=== PATIENT | female | born 1990 | race Caucasian/White ===

== ENCOUNTER 2018-05-15 09:11 | Emergency (ER) | payer MEDICAID ==
[~2018-05-15] VITALS: Ht 152.4 cm; Wt 101.6 kg
--- NOTE | 2018-05-15 09:19 | NUR ---
PT AMBULATES TO BED 4
[2018-05-15 09:25] VITALS: BP 132/90
--- NOTE | 2018-05-15 09:25 | NUR ---
Patient being evaluated by physician at bedside.
[2018-05-15] MEDS ORDERED: traMADol 50 MG TAB PO ONE (09:30)
[2018-05-15] MEDS ORDERED: KETOROLAC 60 MG/2 ML VIAL IM ONE (09:30)
--- NOTE | 2018-05-15 09:30 | NUR ---
PT. bib friend with c/o abnormal vaginal bleeding since 629 today. Patient denies any sob or dizziness. Patient reports of 6/10 bl lower abd Cramping pain. Pt. denies any n/v/d. Pt states " i have been getting a lot of clots and i am regular on my period". ER md made aware. Will continue to monitor. safety precautions implemented. friend at bedside.
--- NOTE | 2018-05-15 10:28 | NUR ---
PT. RESTING COMFORTABLY IN BED, HOB ELEVATED. NO FURTHER CONCERNS AT THIS TIME. LAB AT BEDSIDE.
--- NOTE | 2018-05-15 10:37 | NUR ---
US AT BEDSIDE
[2018-05-15 10:47] LABS: BASOPHILS # (AUTO) 0.1 K/uL (0.00-0.22); BASOPHILS % (AUTO) 0.5 % (0.0-2.0); EOSINOPHILS % (AUTO) 0.4 % (0.0-4.0); HEMATOCRIT 37.8 % (36-48); HEMOGLOBIN 12.3 g/dL (12.0-16.0); LYMPHOCYTES # (AUTO) 1.4 K/uL (2.5-16.5); LYMPHOCYTES % (AUTO) 12.1 % (20.5-51.1); MEAN CORPUSCULAR HEMOGLOBIN 27 pg (27-31); MEAN CORPUSCULAR HGB CONC 33 g/dL (33-37); MEAN CORPUSCULAR VOLUME 83.8 fL (80-94); MONOCYTES # (AUTO) 0.5 K/uL (0.8-1.0); MONOCYTES % (AUTO) 3.9 % (1.7-9.3); NEUTROPHILS # (AUTO) 9.9 K/uL (1.8-7.7); NEUTROPHILS % (AUTO) 83.1 % (42.2-75.2); PLATELET COUNT (AUTO) 325 K/uL (140-450); RED BLOOD CELL COUNT(AUTO) 4.51 MIL/uL (4.20-5.40); RED CELL DISTRIBUTION WIDTH 13.5 % (11.6-13.7)
[2018-05-15 11:17] LABS: APPEARANCE,URINE SL CLOUDY (CLEAR); BILIRUBIN,URINE NEGATIVE (NEGATIVE); BLOOD, URINE 3+ (NEGATIVE); COLOR,URINE RED (YELLOW); LEUKOCYTE ESTERASE ,URINE TRACE (NEGATIVE); NITRITE, URINE NEGATIVE (NEGATIVE); UGLUCOSE NEGATIVE (NEGATIVE)
[2018-05-15 11:23] LABS: RBC,URINE 11-20 (MOD) /HPF (0-5); WBC,URINE 0-5 (RARE) /HPF (0-5)
[2018-05-15 11:52] VITALS: BP 130/86
--- NOTE | 2018-05-15 11:52 | NUR ---
Patient discharged with v/s stable. Written and verbal after care instructions given and explained. Patient alert, oriented and verbalized understanding of instructions. Ambulatory with steady gait. All questions addressed prior to discharge. ID band removed. Patient advised to follow up with PMD. Rx of Motrin 800mg, and Tramadol 50mg given. Patient educated on indication of medication including possible reaction and side effects. Opportunity to ask questions provided and answered.
== END 2018-05-15 11:52 | disposition home or self-care (01) ==
LOC: MED 09:11
DX: O46.91 Antepartum hemorrhage, unspecified, first trimester (principal); M54.9 Dorsalgia, unspecified; R42 Dizziness and giddiness; Z90.49 Acquired absence of other specified parts of digestive tract
CPT/HCPCS: 36415; 76817; 81001; 81025; 84702; 85025; 86900; 86901; 96372; 99284; J1885; Q0092

== ENCOUNTER 2019-10-22 12:15 | Inpatient (IN) | payer MEDICAID, SELFPAY ==
[~2019-10-22] VITALS: Ht 152.4 cm; Wt 113.9 kg
[2019-10-22] MEDS ORDERED: LACTATED RINGERS 1,000 ML IV SCH (12:46)
[2019-10-22] MEDS ORDERED: TRA200 PO (12:53)
[2019-10-22] MEDS ORDERED: PREN-380 PO (12:53)
[2019-10-22 13:30] LABS: APPEARANCE,URINE CLEAR (CLEAR); BILIRUBIN,URINE NEGATIVE (NEGATIVE); BLOOD, URINE 1+ (NEGATIVE); COLOR,URINE YELLOW (YELLOW); LEUKOCYTE ESTERASE ,URINE NEGATIVE (NEGATIVE); NITRITE, URINE NEGATIVE (NEGATIVE); PH,URINE 5.5 (5.0-9.0); UGLUCOSE NEGATIVE (NEGATIVE)
[2019-10-22 13:40] LABS: BASOPHILS % (AUTO) 0.2 % (0.0-2.0); EOSINOPHILS # (AUTO) 0.1 K/uL (0-0.4); EOSINOPHILS % (AUTO) 0.6 % (0.0-4.0); HEMATOCRIT 37.7 % (36-48); HEMOGLOBIN 12.1 g/dL (12.0-16.0); LYMPHOCYTES # (AUTO) 1.4 K/uL (2.5-16.5); MEAN CORPUSCULAR HEMOGLOBIN 26 pg (27-31); MEAN CORPUSCULAR HGB CONC 32 g/dL (33-37); MEAN CORPUSCULAR VOLUME 80.9 fL (80-94); MONOCYTES # (AUTO) 0.6 K/uL (0.8-1.0); MONOCYTES % (AUTO) 4.9 % (1.7-9.3); NEUTROPHILS # (AUTO) 9.4 K/uL (1.8-7.7); NEUTROPHILS % (AUTO) 82.3 % (42.2-75.2); PLATELET COUNT (AUTO) 88 K/uL (140-450); RED BLOOD CELL COUNT(AUTO) 4.65 MIL/uL (4.20-5.40); WHITE BLOOD COUNT (AUTO) 11.4 K/uL (4.8-10.8)
[2019-10-22 13:50] LABS: ALBUMIN 2.7 g/dL (3.4-5.0); ANION GAP 13.4 (8-16); CARBON DIOXIDE 26.8 mmol/L (21-32); CREATININE 0.5 mg/dL (0.6-1.3); POTASSIUM 4.2 mmol/L (3.5-5.1); TOTAL BILIRUBIN 0.4 mg/dL (0.0-1.0)
[2019-10-22] MEDS ORDERED: AMPICILLIN 2,000 MG VIAL ONE (13:59)
[2019-10-22 14:03] LABS: WBC,URINE 0-5 /HPF (0-5)
[2019-10-22 14:33] VITALS: BP 132/87
[2019-10-22] MEDS ORDERED: AMPICILLIN 2,000 MG in NACL 0.9% 100 ML IV SCH (16:00)
[2019-10-22] MEDS ORDERED: OXYTOCIN 20 UNITS in LACTATED RINGERS 1,000 ML IV SCH (17:06)
[2019-10-22] MEDS ORDERED: IBUPROFEN 800 MG TAB PO PRN (17:10)
[2019-10-22] MEDS ORDERED: TEMAZEPAM 15 MG CAP PO PRN (17:10)
[2019-10-22] MEDS ORDERED: KETOROLAC 30 MG/ML VIAL IVP PRN (17:10)
[2019-10-22] MEDS ORDERED: oxyCODONE/APAP 5/325 MG 1 TAB TAB PO PRN ×2 (17:10)
[2019-10-22] MEDS ORDERED: MORPHINE PRES FREE 10 MG/10 ML AMP IV ONE (17:19)
[2019-10-22] MEDS ORDERED: DEXAMETHASONE 4 MG/ML VIAL ONE (17:24)
[2019-10-22] MEDS ORDERED: ONDANSETRON 4 MG/2 ML VIAL ONE (18:01)
[2019-10-22] MEDS ORDERED: OXYTOCIN 20 UNITS/LR PREMIX 1,000 ML IV ONE (18:02)
[2019-10-22] MEDS ORDERED: ONDANSETRON 4 MG/2 ML VIAL IVP PRN (18:50)
[2019-10-22] MEDS ORDERED: MEPERIDINE 25 MG/ML SYR IVP PRN (18:50)
[2019-10-22] MEDS ORDERED: diphenhydrAMINE 50 MG/ML VIAL IVP PRN (18:50)
[2019-10-22] MEDS ORDERED: HYDROmorphone 1 MG/ML AMP IVP PRN (18:50)
[2019-10-23] MEDS ORDERED: OXYTOCIN 20 UNITS/LR PREMIX 1,000 ML IV ONE (02:32)
[2019-10-23] MEDS: OXYTOCIN 20 UNITS in LACTATED RINGERS 1,000 ML IV SCH ×2 (02:50→11:40)
[2019-10-23 06:30] LABS: BASOPHILS % (AUTO) 0.1 % (0.0-2.0); HEMATOCRIT 36.8 % (36-48); HEMOGLOBIN 11.8 g/dL (12.0-16.0); LYMPHOCYTES % (AUTO) 5.8 % (20.5-51.1); MEAN CORPUSCULAR HEMOGLOBIN 26 pg (27-31); MEAN CORPUSCULAR HGB CONC 32 g/dL (33-37); MEAN CORPUSCULAR VOLUME 80.6 fL (80-94); MONOCYTES # (AUTO) 0.4 K/uL (0.8-1.0); MONOCYTES % (AUTO) 2.3 % (1.7-9.3); NEUTROPHILS % (AUTO) 91.8 % (42.2-75.2); PLATELET COUNT (AUTO) 87 K/uL (140-450); RED BLOOD CELL COUNT(AUTO) 4.57 MIL/uL (4.20-5.40); RED CELL DISTRIBUTION WIDTH 15.1 % (11.6-13.7); WHITE BLOOD COUNT (AUTO) 17.4 K/uL (4.8-10.8)
[2019-10-23] MEDS ORDERED: SODIUM PHOSPHATE 118 ML ENEM RC SCH (09:00)
[2019-10-23] MEDS: SIMETHICONE 80 MG TAB.CHEW PO PRN ×2 (09:07→13:32)
--- NOTE | 2019-10-23 09:49 | NUR ---
PATIENT HAS BEEN SCREENED AND CATEGORIZED LOW NUTRITION RISK. PATIENT WILL BE SEEN WITHIN 7 DAYS OF ADMISSION. 10/29/[address]
[2019-10-23] MEDS: DOCUSATE SOD/SENNA 50/8.6 MG 1 TAB PO SCH (21:11)
[2019-10-24] MEDS: SIMETHICONE 80 MG TAB.CHEW PO PRN ×2 (08:48→17:06)
[2019-10-24] MEDS: DOCUSATE SOD/SENNA 50/8.6 MG 1 TAB PO SCH (21:26)
[2019-10-25] MEDS ORDERED: CAMERA MC ONE (02:12)
[2019-10-25] MEDS: SIMETHICONE 80 MG TAB.CHEW PO PRN (08:49)
== END 2019-10-25 14:50 | disposition home or self-care (01) | DRG 540 ==
LOC: MLD 12:15 → MFCC 19:10
PROVIDERS: ADMIT Obstetrics & Gynecology; ATTEND Obstetrics & Gynecology
PROC: 10D00Z1 Extraction of Products of Conception, Low, Open Approach (ICD-10-PCS; principal; 2019-10-22 17:00)
DX: O41.03X0 Oligohydramnios, third trimester, not applicable or unspecified (principal); O10.92 Unspecified pre-existing hypertension complicating childbirth; O34.211 Maternal care for low transverse scar from previous cesarean delivery; Z37.0 Single live birth; Z20.828 Contact with and (suspected) exposure to other viral communicable diseases; Z3A.38 38 weeks gestation of pregnancy
CPT/HCPCS: 36415; 51702; 80053; 81001; 85025; 86592; 86886; 86900; 86901; J0290; J0690; J1100; J2270; J2405; J2590; J7060; J7120; U0003-CS